=== PATIENT | female | born 1990 | race American Indian/Alaskan Native ===

== ENCOUNTER 2020-06-28 12:02 | Emergency (ER) | payer SELFPAY ==
[2020-06-28 12:15] VITALS: BP 151/105
--- NOTE | 2020-06-28 12:27 | Emergency Department Report ---
Chief Complaint: Urogenital-Female Stated Complaint: VAGINAL DISCHARGE/B.V Time Seen by Provider: 06/28/20 12:22 - HPI History of Present Illness: 29-year-old -Greek female presents to the emergency room complaining of vaginal discharge states that it is her bacterial vaginosis that is flaring up. Patient states was going on for about 2-1/2 weeks. She reports her last menstrual period was 06/18/2020. Patient denies any abdominal pain, no nausea, no vomiting, no dysuria, no fever or chills. Patient is not concerned for any STD. - Exam Vital Signs: Vital Signs 06/28/20 12:07 Temperature 98.3 F Pulse Rate 95 H Respiratory 20 Rate Blood Pressure 151/105 O2 Sat by Pulse 97 Oximetry Physical Exam: Gen: alert oriented NAD Cardic: regular rate and rhythm no murmurs appreciated Resp: Clear to auscultation bilateral no wheezing no rales or rhonchi. Abdomen: Soft nontender nondistended normal bowel sounds. Mini neuro: strengh 4/5 all extrimities, Alert and oriented time 3 Crainal nerve II-IIX intact MSE screening note: Focused history and physical exam performed. Due to findings the following was ordered: 29-year-old -Greek female presents to the emergency room complaining of vaginal discharge states that it is her bacterial vaginosis that is flaring up. Patient states was going on for about 2-1/2 weeks. She reports her last menstrual period was 06/18/2020. Patient denies any abdominal pain, no nausea, no vomiting, no dysuria, no fever or chills. Patient is not concerned for any STD. Referral to the health department, [facility] and [facility] ED Disposition for MSE Disposition: Z- MED SCREENING EXAM-LEFT Is pt being admited?: No Does the pt Need Aspirin: No Condition: Stable Additional Instructions: Recommend to follow-up with a [facility] or primary care provider. Also you can try [id number] boric acid suppositories. Increase your fluid intake. Referrals: [facility] [Provider Group] - 3-5 Days [facility] [Provider Group] - 3-5 Days [facility] [Provider Group] - 3-5 Days
== END 2020-06-28 12:51 | disposition left against medical advice (07) ==
LOC: ED 12:02
DX: N89.8 Other specified noninflammatory disorders of vagina (principal); Z53.21 Procedure and treatment not carried out due to patient leaving prior to being seen by health care provider

== ENCOUNTER 2020-07-21 18:48 | Emergency (ER) | payer SELFPAY ==
[2020-07-21 20:49] VITALS: BP 132/90
[2020-07-21 21:21] LABS: Basophils # (Auto) 0.1 K/mm3 (0.0-0.1); Basophils % (Auto) 0.6 % (0.0-1.8); Eosinophils # (Auto) 0.1 K/mm3 (0.0-0.4); Eosinophils % (Auto) 0.6 % (0.0-4.3); Hematocrit 35.6 % (30.3-42.9); Hemoglobin 11.6 gm/dl (10.1-14.3); Lymphocytes # (Auto) 3.2 K/mm3 (1.2-5.4); Lymphocytes % (Auto) 30.2 % (13.4-35.0); Mean Corpuscular HGB Conc 33 % (30-34); Mean Corpuscular Volume 82 fl (79-97); Monocytes # (Auto) 0.6 K/mm3 (0.0-0.8); Monocytes % (Auto) 5.7 % (0.0-7.3); Platelet Count 425 K/mm3 (140-440); Red Blood Count 4.32 M/mm3 (3.65-5.03); Red Cell Distribution Width 14.9 % (13.2-15.2)
--- NOTE | 2020-07-21 21:26 | Emergency Department Report ---
ED Abdominal Pain HPI - General Chief Complaint: Abdominal Pain Stated Complaint: POSSIBLY Time Seen by Provider: 07/21/20 21:01 Source: patient Mode of arrival: Ambulatory Limitations: No Limitations - History of Present Illness Initial Comments: Patient is a 29-year-old -[place] female who presents with bilateral lower abdominal pain. States she believes she is with last menstrual period 1 month ago. She describes symptoms as cramping intermittent , patient denies vaginal bleeding, denies dysuria frequency or urgency, patient denies vaginal discharge. Symptoms are rated at 4/10 patient has not taken home test. States 1 episode of nausea vomiting this morning that prompted visit to ED. MD Complaint: abdominal pain Severity scale (0 -10): 0 - Related Data Previous Rx's Medication Instructions Recorded Last Taken Type cephALEXin [Keflex] 500 mg PO BID 7 Days #14 cap 07/21/20 Unknown Rx Allergies Allergy/AdvReac Type Severity Reaction Status Date / Time No Known Allergies Allergy Verified 07/21/20 19:40 ED Review of Systems ROS: Stated complaint: POSSIBLY Other details as noted in HPI Constitutional: denies: chills, fever Eyes: denies: eye pain, eye discharge, vision change ENT: denies: ear pain, throat pain Respiratory: denies: cough, shortness of breath, wheezing Cardiovascular: denies: chest pain, palpitations Endocrine: no symptoms reported Gastrointestinal: abdominal pain, nausea. denies: vomiting, diarrhea, constipation, hematemesis, melena, hematochezia Genitourinary: denies: urgency, dysuria, frequency, hematuria, discharge Musculoskeletal: denies: back pain, joint swelling, arthralgia Skin: denies: rash, lesions Neurological: denies: headache, weakness, paresthesias Psychiatric: denies: anxiety, depression Hematological/Lymphatic: denies: easy bleeding, easy bruising ED Past Medical Hx - Past Medical History Previous Medical History?: No - Surgical History Past Surgical History?: No - Social History Smoking Status: Never Smoker Substance Use Type: None - Medications Home Medications: Home Medications Medication Instructions Recorded Confirmed Last Taken Type cephALEXin [Keflex] 500 mg PO BID 7 Days #14 cap 07/21/20 Unknown Rx ED Physical Exam - General Limitations: No Limitations General appearance: alert, in no apparent distress - Head Head exam: Present: atraumatic, normocephalic - Eye Eye exam: Present: normal appearance, EOMI - ENT ENT exam: Present: mucous membranes moist - Neck Neck exam: Present: normal inspection, full ROM. Absent: tenderness - Respiratory Respiratory exam: Present: normal lung sounds bilaterally. Absent: respiratory distress, wheezes, stridor - Cardiovascular Cardiovascular Exam: Present: regular rate, normal rhythm, normal heart sounds. Absent: systolic murmur, diastolic murmur, rubs, gallop - GI/Abdominal GI/Abdominal exam: Present: soft, tenderness (mild bilat lower abd superpubic tenderness to deep palpation, no cva tenderness, no bruit, no thrill, no peritoneal signs ), normal bowel sounds. Absent: distended, guarding, rebound, rigid, bruit, hernia - Rectal Rectal exam: Present: deferred - Extremities Exam Extremities exam: Present: normal inspection, full ROM. Absent: tenderness - Back Exam Back exam: Present: normal inspection, full ROM. Absent: tenderness, CVA tenderness (R), CVA tenderness (L) - Neurological Exam Neurological exam: Present: alert, oriented X3, CN II-XII intact, normal gait - Psychiatric Psychiatric exam: Present: normal affect, normal mood - Skin Skin exam: Present: warm, dry, intact, normal color. Absent: rash ED Course Vital Signs 07/21/20 19:42 Temperature 99.0 F Pulse Rate 96 H Respiratory 16 Rate Blood Pressure 132/90 O2 Sat by Pulse 100 Oximetry ED Medical Decision Making - Lab Data Result diagrams: 07/21/20 21:07 Labs 07/21/20 07/21/20 21:07 21:52 WBC 10.5 RBC 4.32 Hgb 11.6 Hct 35.6 MCV 82 MCH 27 L MCHC 33 RDW 14.9 Plt Count 425 Lymph % (Auto) 30.2 [place] % (Auto) 5.7 Eos % (Auto) 0.6 Baso % (Auto) 0.6 Lymph # (Auto) 3.2 [place] # (Auto) 0.6 Eos # (Auto) 0.1 Baso # (Auto) 0.1 Seg Neutrophils % 62.9 Seg Neutrophils # 6.6 Urine Color Yellow Urine Turbidity Slightly-cloudy Urine pH 6.0 Ur Specific [place] 1.018 Urine Protein 30 mg/dl Urine Glucose (UA) Neg Urine Ketones 20 Urine Blood Neg Urine Nitrite Neg Urine Bilirubin Neg Urine Urobilinogen 4.0 Ur Leukocyte Esterase Mod Urine WBC (Auto) 22.0 H Urine RBC (Auto) 3.0 U Epithel Cells (Auto) 18.0 H Urine Mucus 1+ Urine HCG, Qual Positive A Labs 07/21/20 07/21/20 07/21/20 21:07 21:52 23:05 WBC 10.5 RBC 4.32 Hgb 11.6 Hct 35.6 MCV 82 MCH 27 L MCHC 33 RDW 14.9 Plt Count 425 Lymph % (Auto) 30.2 [place] % (Auto) 5.7 Eos % (Auto) 0.6 Baso % (Auto) 0.6 Lymph # (Auto) 3.2 [place] # (Auto) 0.6 Eos # (Auto) 0.1 Baso # (Auto) 0.1 Seg Neutrophils % 62.9 Seg Neutrophils # 6.6 HCG, Qual Positive Urine Color Yellow Urine Turbidity Slightly-cloudy Urine pH 6.0 Ur Specific [place] 1.018 Urine Protein 30 mg/dl Urine Glucose (UA) Neg Urine Ketones 20 Urine Blood Neg Urine Nitrite Neg Urine Bilirubin Neg Urine Urobilinogen 4.0 Ur Leukocyte Esterase Mod Urine WBC (Auto) 22.0 H Urine RBC (Auto) 3.0 U Epithel Cells (Auto) 18.0 H Urine Mucus 1+ Urine HCG, Qual Positive A Labs 07/21/20 07/21/20 07/21/20 21:07 21:52 23:05 WBC 10.5 RBC 4.32 Hgb 11.6 Hct 35.6 MCV 82 MCH 27 L MCHC 33 RDW 14.9 Plt Count 425 Lymph % (Auto) 30.2 [place] % (Auto) 5.7 Eos % (Auto) 0.6 Baso % (Auto) 0.6 Lymph # (Auto) 3.2 [place] # (Auto) 0.6 Eos # (Auto) 0.1 Baso # (Auto) 0.1 Seg Neutrophils % 62.9 Seg Neutrophils # 6.6 HCG, Qual Positive HCG, Quant Urine Color Yellow Urine Turbidity Slightly-cloudy Urine pH 6.0 Ur Specific [place] 1.018 Urine Protein 30 mg/dl Urine Glucose (UA) Neg Urine Ketones 20 Urine Blood Neg Urine Nitrite Neg Urine Bilirubin Neg Urine Urobilinogen 4.0 Ur Leukocyte Esterase Mod Urine WBC (Auto) 22.0 H Urine RBC (Auto) 3.0 U Epithel Cells (Auto) 18.0 H Urine Mucus 1+ Urine HCG, Qual Positive A 07/22/20 00:49 WBC RBC Hgb Hct MCV MCH MCHC RDW Plt Count Lymph % (Auto) [place] % (Auto) Eos % (Auto) Baso % (Auto) Lymph # (Auto) [place] # (Auto) Eos # (Auto) Baso # (Auto) Seg Neutrophils % Seg Neutrophils # HCG, Qual HCG, Quant 1451 H Urine Color Urine Turbidity Urine pH Ur Specific [place] Urine Protein Urine Glucose (UA) Urine Ketones Urine Blood Urine Nitrite Urine Bilirubin Urine Urobilinogen Ur Leukocyte Esterase Urine WBC (Auto) Urine RBC (Auto) U Epithel Cells (Auto) Urine Mucus Urine HCG, Qual - Radiology Data Radiology results: report reviewed, image reviewed INDICATION / CLINICAL INFORMATION: abd pain pos preg. TECHNIQUE: Transabdominal. COMPARISON: None available. FINDINGS: UTERUS: Appears within normal limits. GESTATIONAL SAC: Gestational sac is visualized ADNEXA: No significant abnormality. FREE FLUID: None. ADDITIONAL FINDINGS: None. IMPRESSION: 1. No intrauterine gestational sac is visualized(BHCG isnt available at the time of this exam). Correlate with trending beta hCGs and repeat sonograms as clinically indicated. Signer Name: Duglas Ulloa MD Signed: 07/22/2020 12:00 AM Workstation Name: [id number] Transcribed By: CS Dictated By: Duglas Ulloa MD Electronically Authenticated By: Duglas Ulloa MD Signed Date/Time: 07/22/20 0000 DD/ 2359 TD/TT: - Medical Decision Making pt decline pain medication at this time , there is no n/v at this time. US OB: no iup noted, hcg is pos at plan follow up with ramesh FOFANA for UTI, pt verbalized agreement and understanding of discharge plan. pt dc'd to [facility] with stable condition at this time. Critical care attestation.: If time is entered above; I have spent that time in minutes in the direct care of this critically ill patient, excluding procedure time. ED Disposition Clinical Impression: Positive blood test UTI (urinary tract infection) Qualifiers: Urinary tract infection type: acute cystitis Disposition: DC-01 TO HOME OR SELFCARE Is pt being admited?: No Does the pt Need Aspirin: No Condition: Stable Instructions: Care, and Urinary Tract Infection, Abdominal Pain (ED) Prescriptions: cephALEXin [Keflex] 500 mg PO BID 7 Days #14 cap Referrals: [facility] [Provider Group] - 3-5 Days Forms: Work/School Release Form(ED) Time of Disposition: 01:23
[2020-07-21 22:29] LABS: Bilirubin,Urine NEG (Negative); Blood,Urine NEG (Negative); Color,Urine Yellow (Yellow); Mucus,Urine 1+ /HPF
[2020-07-21 22:30] LABS: HCG Qualitative,Urine Positive (Negative)
--- NOTE | 2020-07-22 00:04 | Ultrasound Report ---
US OB <= 14 weeks fetus INDICATION / CLINICAL INFORMATION: abd pain pos preg. TECHNIQUE: Transabdominal. COMPARISON: None available. FINDINGS: UTERUS: Appears within normal limits. GESTATIONAL SAC: Gestational sac is visualized ADNEXA: No significant abnormality. FREE FLUID: None. ADDITIONAL FINDINGS: None. IMPRESSION: 1. No intrauterine gestational sac is visualized(BHCG isnt available at the time of this exam). Corre late with trending beta hCGs and repeat sonograms as clinically indicated. Signer Name: Duglas Ulloa MD Signed: 07/22/2020 12:00 AM Workstation Name: [id number]
== END 2020-07-22 01:30 | disposition home or self-care (01) ==
LOC: ED 18:48
DX: O23.41 Unspecified infection of urinary tract in pregnancy, first trimester (principal); Z3A.01 Less than 8 weeks gestation of pregnancy; Z79.899 Other long term (current) drug therapy
CPT/HCPCS: 36415; 76801; 81001; 81025; 84702; 84703; 85025; 87086